=== PATIENT | female | born 1970 | race Caucasian/White ===

== ENCOUNTER 2024-01-19 08:27 | Emergency (ER) | payer OTHER, SELFPAY ==
--- NOTE | ~2024-01-19 | XR_ITS ---
EXAMINATION: XR chest 1V portable DATE: 01/19/2024 09:04 INDICATION: Cough TECHNIQUE: frontal view of the chest was obtained. COMPARISON: None FINDINGS: The lungs are clear with no focal airspace opacities, pulmonary edema, pleural effusion or pneumothor ax. The cardiomediastinal silhouette is normal. Moderate thoracic spondylosis. IMPRESSION: 1. No acute cardiopulmonary disease. Reviewed, dictated and finalized at location A.
[2024-01-19 08:31] VITALS: BP 153/88; PULSE 86; RESP 20; TEMP 36.7; O2SAT 97
--- NOTE | 2024-01-19 08:34 | ED.GENADULT ---
HPI - General Adult General Chief complaint: Recheck/Abnormal Lab/Rx Stated complaint: trouble with blood sugar Time Seen by Provider: 01/19/24 08:28 History of Present Illness HPI narrative: 53-year-old female who reports prediabetes presents to the emergency department complaining of 3 days of elevated blood sugars, headaches, sinus pressure, fatigue and cough. Patient initially thought this was due to her elevated blood sugar. Patient states her blood sugar this morning was 150. Related Data Allergies Allergy/AdvReac Type Severity Reaction Status Date / Time codeine Allergy Chest Pain Verified 01/19/24 08:37 Review of Systems Review of Systems: All systems reviewed & are unremarkable except as noted in HPI and below Exam Narrative: APPEARANCE: Well appearing, no pain, no distress, well-nourished. HEAD: normocephalic, atraumatic. EYES: PERRLA/EOMI, conjunctivae clear. NOSE: Normal no drainage NECK: Supple. No adenopathy, no masses. RESPIRATORY: Airway patent, respirations nonlabored. Clear to auscultation bilaterally, no rales, rhonchi, wheezing. CARDIOVASCULAR: Regular rate and rhythm without murmurs rubs or gallops. ABDOMINAL: Soft, nontender, nondistended, normal bowel sounds MUSCULOSKELETAL: Moves all extremities. Strength/ROM intact, No edema, No calf tenderness. NEURO: Alert. Cranial nerves II through XII intact. Grossly intact SKIN: Warm, dry. Normal Color Course Course Emergency Course: Patient felt improved with treatment Vital Signs Vital signs: Vital Signs Temperature 98.0 F 01/19/24 08:31 Pulse Rate 86 01/19/24 08:31 Respiratory Rate 20 01/19/24 08:31 Blood Pressure 153/88 H 01/19/24 08:31 Pulse Oximetry 97 01/19/24 08:31 Oxygen Delivery Room Air 01/19/24 08:31 Temperature 98.0 F 01/19/24 08:31 Pulse Rate 78 01/19/24 09:58 Respiratory Rate 15 01/19/24 09:58 Blood Pressure 133/89 01/19/24 09:58 Pulse Oximetry 99 01/19/24 09:58 Oxygen Delivery Room Air 01/19/24 08:31 Medical Decision Making MDM Narrative Medical decision making narrative: 53-year-old female presented emergency department for evaluation generalized fatigue. Patient is afebrile with no leukocytosis and a stable hemoglobin of 13.8. Patient's blood glucose is not significantly elevated and patient has no anion gap. UA does show leuks esterase positive with high white blood cells and +4 bacteria, patient was started on Rocephin the emergency department will be discharged home Keflex for suspected urinary tract infection. Patient was negative for influenza RSV and for COVID. Chest x-ray shows no acute cardiopulmonary abnormality. Patient was updated the results of her workup and patient was comfortable the plan for discharge and close follow-up. Differential Diagnosis Differential Diagnosis: COVID, RSV, influenza, pneumonia, DKA, hyperglycemia, urinary tract infection Vital Signs Vital Signs: Vital Signs Temperature 98.0 F 01/19/24 08:31 Pulse Rate 86 01/19/24 08:31 Respiratory Rate 20 01/19/24 08:31 Blood Pressure 153/88 H 01/19/24 08:31 Pulse Oximetry 97 01/19/24 08:31 Oxygen Delivery Room Air 01/19/24 08:31 Temperature 98.0 F 01/19/24 08:31 Pulse Rate 78 01/19/24 09:58 Respiratory Rate 15 01/19/24 09:58 Blood Pressure 133/89 01/19/24 09:58 Pulse Oximetry 99 01/19/24 09:58 Oxygen Delivery Room Air 01/19/24 08:31 Lab Data Lab results reviewed: Yes I reviewed the patient's lab results. 01/19/24 08:43 01/19/24 08:43 Labs: Lab Results 01/19/24 01/19/24 Range/Units 08:34 08:43 WBC 8.4 (4.5-10.0) K/mm3 RBC 4.50 (4.2-5.4) M/mm3 Hgb 13.8 (12.0-15.0) g/dL Hct 41.1 (37.0-47.0) % MCV 91.3 (80-100) fl MCH 30.7 (26-34) pg MCHC 33.6 (32-36) g/dl RDW 14.3 (11.5-14.5) % Plt Count 198 (150-375) k/mm3 MPV 9.5 (7.4-10.4) fl Immature Gran % (Auto) 0.2 (0-0.5) %
[2024-01-19 08:37] LABS: Glucose Point of Care 125 mg/dl (65-105)
[2024-01-19] MEDS: Please add drug allergy info to patient profile. 1 EACH XX (08:47)
[2024-01-19] MEDS: SODIUM CHLORIDE 0.9% IV 1,000 ML 999 ML IV CONT (08:47)
[2024-01-19 08:53] LABS: Basophils Percent Auto 0.5 % (0.2-1.2); Eosinophils Absolute Auto 0.2 K/mm3 (0-0.3); Eosinophils Percent Auto 1.8 % (0-4.4); Hematocrit 41.1 % (37.0-47.0); Hemoglobin 13.8 g/dL (12.0-15.0); Immature Granulocyte Absolute 0.02 K/mm3 (0.00-0.031); Immature Granulocyte Percent A 0.2 % (0-0.5); Lymphocytes Absolute Auto 1.92 K/mm3 (0.9-3.2); Lymphocytes Percent Auto 22.9 % (18.3-44.2); Mean Corpuscular HGB Conc 33.6 g/dl (32-36); Mean Corpuscular Hemoglobin 30.7 pg (26-34); Mean Corpuscular Volume 91.3 fl (80-100); Mean Platelet Volume 9.5 fl (7.4-10.4); Monocytes Absolute Auto 0.4 K/mm3 (0.1-0.6); Monocytes Percent Auto 4.5 % (2.6-8.5); Neutrophils Absolute Auto 5.9 K/mm3 (1.3-6.7); Neutrophils Percent Auto 70.1 % (45.5-73.1); Platelet Count Result 198 k/mm3 (150-375); Red Cell Distribution Width 14.3 % (11.5-14.5); White Blood Count 8.4 K/mm3 (4.5-10.0)
[2024-01-19 08:56] LABS: Appearance Urine Clear (Clear); Bacteria Urine 4+ /hpf; Bilirubin Urine Negative (Negative); Blood Urine Negative (Negative); Color Urine Yellow (Yellow); Glucose Urine UA Negative (Negative); Ketones Urine Negative (Negative); Leukocyte Esterase Ur 2+ LEU/UL (Negative); Nitrate Urine Negative (Negative); Non Pathogenic Casts 0-2; Protein Urine Negative (Negative); RBC Urine 0-2 /hpf (0-2); Specific Grav Ur 1.005 (1.001-1.035); Squamous Epithelial Cell Urine None Seen /hpf (Few); Urobilinogen Urine 0.2 mg/dL (<2.0)
[2024-01-19 08:57] LABS: Add Urine Microscopic? YES
[2024-01-19 09:03] LABS: Alanine Aminotransferase 20 U/L (6-35); Albumin Level 4.3 g/dL (3.5-5.1); Alkaline Phosphatase 60 U/L (38-126); Anion Gap 8 mmol/L (4-12); Aspartate Amino Transferase 20 U/L (14-36); Bilirubin,Total 0.4 mg/dL (0.2-1.3); Blood Urea Nitrogen 9 mg/dL (7-17); Calcium 9.6 mg/dL (8.4-10.2); Carbon Dioxide 25 mmol/L (22-30); Chloride 106 mmol/L (98-107); Estimated CRCL calculation 82 ml/min; Estimated Glomerular Filt Rate > 60; Glucose 119 mg/dL (65-110); Potassium 3.5 mmol/L (3.4-5.0); Sodium 139 mmol/L (137-145)
[2024-01-19 09:27] LABS: Influenza A QL RT-PCR Negative (Negative); Influenza B QL RT-PCR Negative (Negative); RSV RNA, RT-PCR Negative (Negative); SARS-CoV-2 RNA PCR Negative (Negative)
[2024-01-19 09:58] VITALS: BP 133/89; PULSE 78; RESP 15; O2SAT 99
== END 2024-01-19 09:59 | disposition home or self-care (01) ==
LOC: ANHED 09:33
PROVIDERS: Emergency Provider Emergency Medicine
DX: N39.0 Urinary tract infection, site not specified (principal); Z20.822 Contact with and (suspected) exposure to COVID-19; R73.03 Prediabetes
CPT/HCPCS: 36415; 71045; 80053; 81001; 82948; 85025; 87077; 87086; 87088; 87186; 87637; 96361; 96365; 99284; J0696; J7030

== ENCOUNTER 2024-11-03 07:44 | Outpatient (CLI) | payer BC, SELFPAY ==
--- NOTE | ~2024-11-03 | CT_ITS ---
EXAMINATION:CT lung screening DATE: 11/03/2024 08:54 INDICATION: Personal history of nicotine dependence. Current smoker with 20 pack year history. TECHNIQUE: Computed tomography (CT) of the chest was performed without intravenous contrast. Automate d exposure control and iterative reconstruction technique were employed. The dose-length product (DLP ) was 128.06 mGy-cm. COMPARISON: CT abdomen and pelvis 10/13/2024 FINDINGS: There is mild emphysema. There is mosaic attenuation in the lungs. There are patchy groundg lass opacities in the perihilar regions bilaterally. There are a few nodules in the lungs measuring u p to 6 mm at minor fissure. No pleural effusion. The heart size is normal. There are coronary artery calcifications. No pericardial effusion. There are changes of cholecystectomy. There is severe thorac ic spondylosis. There is mild chronic anterior wedging of multiple vertebral bodies. IMPRESSION: 1. Lung-RADS category 2S: Benign appearance or behavior. Continue annual screening with noncontrast l ow-dose chest CT in 12 months. 2. Patchy groundglass opacities in the lungs bilaterally suspicious for atypical pneumonia. Reviewed, dictated and finalized at location A. [employer] INST[employer]ER IMPRESSION: 1. Lung-RADS category 2S: Benign appearance or behavior. Continue annual screen ing with noncontrast low-dose chest CT in 12 months. 2. Patchy groundglass opacities in the lungs bilaterally suspicious for atypica l pneumonia.
--- NOTE | ~2024-11-03 | MR_ITS ---
EXAMINATION: MR abdomen wo/w con DATE: 11/03/2024 08:48 INDICATION: Adrenal mass on CT TECHNIQUE: Magnetic resonance imaging (MRI) of the abdomen was performed without and with 17 mL Multi zhen intravenous contrast. Sequences included coronal T2-weighted SS-FSE, coronal and axial FS 2D-F IESTA, axial STIR FSE, axial T2-weighted SS-FSE, axial T2-weighted FS SS-FSE, axial diffusion-weighte d SE, axial dual-echo T1-weighted FSPGR, and axial and coronal T1-weighted LAVA. Postcontrast axial T 1-weighted LAVA images were obtained in a time course. Postcontrast coronal T1-weighted LAVA images w ere obtained. COMPARISON: CT dated 10/13/2024 FINDINGS: Heart size is normal. No pericardial or pleural effusion. Cholecystectomy clips at the gallbladder fo ssa. Liver, pancreas, right adrenal gland and bilateral kidneys are normal. There is signal dropout o n opposed phase imaging associated with the Sheela left adrenal nodule identified on the prior CT which also demonstrates low-attenuation on intervening noncontrast chest CT consistent with an adenom a. There is a linear low signal intensity band of likely scarring extending across the spleen which c ould represent sequela of prior trauma or infarct. Visualized portions of bowels are unremarkable wit h no obstruction. Normal appendix. No pathologically enlarged abdominal or upper pelvic lymphadenopat hy. Mild thoracolumbar dextrocurvature with mild spondylosis. T1 hyperintense and fat saturating kenia ngioma at T12. Marrow signal is otherwise unremarkable. IMPRESSION: 1. Subcentimeter left adrenal adenoma. Reviewed, dictated and finalized at location B. [employer] SAL[employer]GER
== END 2024-11-03 07:45 | disposition home or self-care (01) ==
LOC: MICIMG 07:46
PROVIDERS: PCP Nurse Practitioner Family; Visit Provider Nurse Practitioner Family
DX: Z12.2 Encounter for screening for malignant neoplasm of respiratory organs (principal); E27.8 Other specified disorders of adrenal gland; D35.02 Benign neoplasm of left adrenal gland; Z87.891 Personal history of nicotine dependence
CPT/HCPCS: 71271; 74183; A9577